=== PATIENT | male | born 1970 ===

== ENCOUNTER 2023-12-20 03:12 | Day surgery (SDC) | payer OTHER, SELFPAY ==
[2023-12-12 13:21] VITALS: BMI 29.6
--- NOTE | 2023-12-12 13:54 | PC.NURSE ---
Report to entrance [address]s parking to the right of the green pavilion located off [facility], at time _1200_ on date _[id number]_. Planned Procedure Time: _2pm_.? Time changes happen often and if your time is changed the preop area will call you the afternoon before. - You and your visitor will be asked to self-screen and do not enter if you have any COVID symptoms. Please call surgeon if you need to reschedule. - A mask is optional within the hospital at this time. Patients may have clear liquids (water, carbonated beverages, clear teas, apple juice) until 3 hours prior to surgery with a maximum of 20 ounces. - No food from midnight until time of surgery and no smoking Take only the following medications with a SIP of water on the morning of surgery: _Oxcarbazepine DO NOT STOP ANY OF YOUR OTHER PRESCRIPTION MEDICATIONS PRIOR TO SURGERY EXCEPT THE FOLLOWING Medications to discontinue per physician ___None__ Date to take last dose Please no make-up, nail qatari, hairspray, perfume, deodorant, or body powder the day of surgery.? No jewelry (including any body piercings) or valuables the day of surgery, leave them at home.? Please take a shower or bath the night before, or the morning of, surgery with an antibacterial soap.? Wear comfortable, loose fitting clothing.? - Jewelry must be removed prior to entering the operating room.? Rings and piercings that are not removed may be cut off. - The hospital will not accept responsibility for valuables.? - Please leave all valuables, including medications, at home the day of surgery. If you are going home after surgery, a licensed double bottom driver must drive you home.? - NO public transportation without another adult if you receive anesthesia. - We recommend that an adult stay with you for 24 hours following discharge. - We also recommend that you do not drive, make important decision, drink alcoholic beverages, or take any drugs that were not prescribed by your health care provider for at least 24 hours after your discharge time. Follow any additional instructions given to you from your surgeon. Telephone instructions given to __Anne___and asked if any additional questions and then verbalized understanding. Patient advised to call surgeon office or pre surgery nurse liaison [phone] if any additional questions.
--- NOTE | 2023-12-16 06:57 | PM.HPGS ---
History of Present Illness History of Present Illness Consent: Risks, benefits, and alternatives have been discussed and questions answered. Patient agrees to proceed with procedure. Chief complaint: left renal stone Narrative: Edgar Bonner is a 53 year old male who recently underwent evaluation for intermittent left flank pain. Imaging with renal ultrasonography and KUB shows a 1.3 cm left renal calculus. Additionally, his history suggested bladder outlet obstruction that failed to respond to tamsulosin. Given these findings he presents today for left ESWL, cystoscopy and possible urethral dilatation. He is aware of the risks including, but not limited to, hematuria, perinephric hematoma, recurrent urethral strictures. [facility] Social History Social History Living arrangements: incarcerated Meds Home Medications and Allergies Home Medications Medication Instructions Recorded Confirmed Type atorvastatin 40 mg tablet 40 mg PO HS 12/12/23 12/12/23 History duloxetine 60 mg capsule,delayed 60 mg PO HS 12/12/23 12/12/23 History release fenofibrate nanocrystallized 145 145 mg PO DAILY 12/12/23 12/12/23 History mg tablet finasteride 5 mg tablet 5 mg PO DAILY 12/12/23 12/12/23 History naproxen 250 mg tablet 250 mg PO BID PRN Pain 12/12/23 12/12/23 History omeprazole 20 mg capsule,delayed 20 mg PO DAILY 12/12/23 12/12/23 History release oxcarbazepine 300 mg tablet 600 mg PO BID 12/12/23 12/12/23 History tamsulosin 0.4 mg capsule 0.4 mg PO DAILY 12/12/23 12/12/23 History Allergies Allergy/AdvReac Type Severity Reaction Status Date / Time No Known Allergies Allergy Verified 12/12/23 13:36 Exam Const: General: no acute distress Resp: Effort & Inspection: normal respiratory effort GI: Inspection: non-distended GI Palp: No abdominal tenderness and No Guarding due to palpation present (GI) Auscultation: normal bowel sounds Assessment and Plan Assessment and plan (1) Left renal stone: Code(s): N20.0 - Calculus of kidney Status: Acute Assessment and Plan: Left ESWL Cystoscopy with possible urethral dilatation (2) Lower urinary tract symptoms: Code(s): R39.9 - Unspecified symptoms and signs involving the genitourinary system Status: Acute
--- NOTE | ~2023-12-20 | XR_ITS ---
EXAMINATION: XR abdomen/kub 1V DATE: 12/20/2023 12:00 INDICATION: Kidney stone. TECHNIQUE: A supine view of the abdomen was obtained. COMPARISON: None. FINDINGS: There are no dilated loops of bowel. There are calcifications in the pelvis measuring up to 4 mm. There is a 16 mm stone in left kidney. IMPRESSION: 1. Left kidney stone. 2. Small calcifications in the pelvis, likely phleboliths. Distal ureteral stone cannot be excluded. Reviewed, dictated and finalized at location A. IMPRESSION: 1. Left kidney stone. 2. Small calcifications in the pelvis, likely phleboliths. Distal ureteral ston e cannot be excluded.
--- NOTE | 2023-12-20 07:37 | WPDHPUPDATE1 ---
History and Physical Update Update Date/Time: 12/20/23 07:37 History and Physical has been reviewed, including an updated exam of the patient. There are NO changes in the patient's condition. Risks, benefits, and alternatives have been discussed and questions answered. Patient agrees to proceed with procedure.
--- NOTE | 2023-12-20 12:34 | WPDANESEPPF ---
Anes - Initial Pre Proc Eval Procedure: Operation Date: 12/20/23 14:00 Proposed Procedures p Left Extracorporeal Shock Wave Lithotripsy, - Keo Meraz MD s Possible Cystoscopy, Urethral Dilatation - Keo Meraz MD Date/Time: 12/20/23 12:34 Surgeon: Keo Meraz MD Pre Op Diagnosis: left renal stone Patient Data Age: 53 Gender: M Height: 1.78 m Weight: 93.6 kg Allergies Allergy/AdvReac Type Severity Reaction Status Date / Time No Known Allergies Allergy Verified 12/12/23 13:36 Home Medications Medication Instructions Recorded Confirmed Type atorvastatin 40 mg tablet 40 mg PO HS 12/12/23 12/12/23 History duloxetine 60 mg capsule,delayed 60 mg PO HS 12/12/23 12/12/23 History release fenofibrate nanocrystallized 145 145 mg PO DAILY 12/12/23 12/12/23 History mg tablet finasteride 5 mg tablet 5 mg PO DAILY 12/12/23 12/12/23 History naproxen 250 mg tablet 250 mg PO BID PRN Pain 12/12/23 12/12/23 History omeprazole 20 mg capsule,delayed 20 mg PO DAILY 12/12/23 12/12/23 History release oxcarbazepine 300 mg tablet 600 mg PO BID 12/12/23 12/12/23 History tamsulosin 0.4 mg capsule 0.4 mg PO DAILY 12/12/23 12/12/23 History Patient hx anesthesia problems: none Family hx anesthesia problems: none Results Review: All pre-operative results and documents have been reviewed as part of the pre-operative evaluation. [facility] Social History Social History Living arrangements: incarcerated Anes - Eval Final PreProcedure Day of Procedure 12/20/23 12:34 Patient weight: overweight Heart: regular rate and rhythm Lungs: decreased breath sounds Airway: Mallampati scale class II Neurological: alert and oriented Last oral intake: >/= 8 hours ASA classification: III Emergent: no Anesthetic plan: proceed Anesthesia type and monitoring: general LMA and standard monitoring Results Review: All pre-operative results and documents have been reviewed as part of the pre-operative evaluation. Informed Consent: The patient's anesthetic plan and its attendant risks and benefits were discussed with the patient/family/POA. Questions were solicited and answers provided to the satisfaction of the patient/family/POA.
[2023-12-20] MEDS: LACTATED RINGERS 1,000 ML 30 ML IV CONT ×2 (12:45→14:01)
[2023-12-20 12:50] LABS: Add Urine Microscopic? YES; Appearance Urine Clear (Clear); Bacteria Urine None Seen /hpf; Bilirubin Urine Negative (Negative); Blood Urine 3+ (Negative); Color Urine Yellow (Yellow); Glucose Urine UA Negative (Negative); Ketones Urine Negative (Negative); Leukocyte Esterase Ur Negative LEU/UL (Negative); Nitrate Urine Negative (Negative); Non Pathogenic Casts 0-2; Protein Urine 2+ mg/dL (Negative); RBC Urine >100 /hpf (0-2); Specific Grav Ur 1.019 (1.001-1.035); Squamous Epithelial Cell Urine None Seen /hpf (Few); Urobilinogen Urine 0.2 mg/dL (<2.0); WBC Urine 0-5 /hpf (0-3)
[2023-12-20 12:57] LABS: Partial Thromboplastin Time 31.7 Seconds (22.3-36.8); Prothrombin Time 13.9 Seconds (11.1-14.7)
[2023-12-20 12:58] LABS: Anion Gap 9 mmol/L (4-12); Blood Urea Nitrogen 22 mg/dL (9-20); Calcium 9.8 mg/dL (8.4-10.2); Carbon Dioxide 29 mmol/L (22-30); Chloride 103 mmol/L (98-107); Estimated CRCL calculation 79 ml/min; Estimated Glomerular Filt Rate > 60; Glucose 95 mg/dL (65-110); Sodium 141 mmol/L (137-145)
[2023-12-20 13:00] VITALS: BP 135/76; PULSE 56; RESP 16; TEMP 36.3; O2SAT 97
[2023-12-20] MEDS: ceFAZolin 2 GM/D5W 50 ML 2 GM/50 ML BAG IVPB (14:21)
--- NOTE | 2023-12-20 14:38 | W.PM.PROC2 ---
Procedure Note - Detailed Date of Procedure 12/20/23 Pre-op Diagnosis Left renal stone, urethral stricture Post-op Diagnosis Same Procedure Performed Cysto. urethral dilatation, left stent placement and left ESWL Surgeon Keo Meraz MD Anesthesia General Description of Procedure The patient was brought to the operative suite where he was placed in the supine position on the Dornier lithotripter table. Flexible cystoscopy was undertaken with a 16F flexible cystoscopy. There was a moderately constricting bulbous urethral strictures. The prostatic urethra estimated length was 1.5cm. There was mild obstruction of the prostatic urethra with no median lobe enlargement. The bladder mucosa was normal and there was a single, orthotopic ureteral orifice bilaterally. A 0.035 glidewire was advanced into the left renal pelvis under fluoroscopy. A 4.8F J-J ureteral stent was positioned with the proximal coil in the renal pelvis and the distal coil in the bladder. The patient was then repositioned in the supine position with the focal point of the lithotriptor on a 16mm left renal calculus. A total of 2500 shocks were delivered at a power setting of 4. There appeared to be good fragmentation of the stone. The patient tolerated the procedure well and was taken to the recovery room in good condition. Drains Yes (4.8F left ureteral stent) Pathology None sent
[2023-12-20 15:10] VITALS: BP 148/98; PULSE 76; RESP 14; TEMP 36.3; O2SAT 100
[2023-12-20 15:25] VITALS: BP 132/90; PULSE 70; RESP 15; O2SAT 100
[2023-12-20 15:40] VITALS: BP 143/83; PULSE 60; RESP 17; O2SAT 100
[2023-12-20 15:50] VITALS: BP 159/99; PULSE 79; RESP 16
[2023-12-20 16:20] VITALS: BP 143/91; PULSE 65; RESP 16
== END 2023-12-20 16:43 | disposition home or self-care (01) ==
PROVIDERS: Anesthesiology; Visit Provider Urology
PROC: (CPT 50590; principal; 2023-12-20 14:00)
PROC: 0T7D8ZZ Dilation of Urethra, Via Natural or Artificial Opening Endoscopic (ICD-10-PCS; CPT 52281; 2023-12-20 14:00)
DX: N20.0 Calculus of kidney (principal); N35.812 Other bulbous urethral stricture, male; Z79.1 Long term (current) use of non-steroidal anti-inflammatories (NSAID)
CPT/HCPCS: 50590; 52332; 36415; 74018; 80048; 81001; 85610; 85730; C1758; C1769; C2617; J0690; J1100; J2250; J2405; J2704; J3010; J7030; J7120